=== PATIENT | female | born 1960 | race Caucasian/White ===

== ENCOUNTER 2018-12-14 10:00 | Emergency (ER) | payer OTHER ==
[~2018-12-14] VITALS: Ht 162.6 cm; Wt 65.8 kg
[2018-12-14] MEDS ORDERED: SODIUM CHLORIDE 0.9% 1000ML 1,000 ML IV STA (11:13)
[2018-12-14] MEDS ORDERED: PANTOPRAZOLE 40 MG 10ML VIAL IV STA (11:13)
[2018-12-14 12:19] LABS: BASOPHILS % 0.3 % (0.0-1.0); EOSINOPHILS # (AUTO) 0.1 (0.0-0.4); EOSINOPHILS % 0.7 % (0.0-6.0); HEMATOCRIT 32.2 % (34.2-44.1); HEMOGLOBIN 11.2 g/dL (12.0-16.0); LYMPHOCYTES # (AUTO) 1.4 (1.0-3.2); LYMPHOCYTES % 20.7 % (18.0-39.1); MEAN CORPUSCULAR HEMOGLOBIN 29.4 pg (28-32); MEAN CORPUSCULAR HGB CONC 34.8 g/dL (31-35); MEAN CORPUSCULAR VOLUME 84.5 fL (81-99); MONOCYTES # (AUTO) 0.7 (0.2-0.8); NEUTROPHILS # (AUTO) 4.7 (2.1-6.9); NEUTROPHILS % 68.2 % (38.7-80.0); PLATELET COUNT 212 x10e3/uL (140-360); RED BLOOD COUNT 3.81 x10e6/uL (3.6-5.1); RED CELL DISTRIBUTION WIDTH 13.2 % (11.7-14.4)
[2018-12-14 12:22] LABS: BILIRUBIN,URINE NEGATIVE (NEGATIVE); CLARITY,URINE SL CLOUDY (CLEAR); COLOR,URINE YELLOW (YELLOW); KETONES,URINE NEGATIVE (NEGATIVE); LEUKOCYTE ESTERASE ,URINE NEGATIVE (NEGATIVE); NITRITE,URINE NEGATIVE (NEGATIVE); PROTEIN,URINE DIPSTICK NEGATIVE (NEGATIVE); URINE UROBILINOGEN 0.2 mg/dL (0.2 - 1)
--- NOTE | 2018-12-14 12:26 | Diagnostic Imaging Report ---
Examination: Single AP view of the chest. COMPARISON: None. INDICATION: Nausea, vomiting, abdominal pain DISCUSSION: Lungs are well-inflated and without focal airspace consolidation, pleural effusion, or pneumothorax. Cardiomediastinal contour and pulmonary vasculature are within normal limits for portable, AP technique. No acute osseous abnormality. IMPRESSION: No acute cardiopulmonary abnormality. Signed by: Dr. Raul Galarza M.D. on 12/14/2018 12:23 PM
[2018-12-14 12:27] LABS: PHENCYCLIDINE SCREEN,URINE NEGATIVE (NEGATIVE)
[2018-12-14 12:28] LABS: AMPHETAMINES SCREEN,URINE NEGATIVE (NEGATIVE)
[2018-12-14 12:28] LABS: INR 0.93
[2018-12-14 12:29] LABS: BENZODIAZEPINES SCREEN,URINE POSITIVE (NEGATIVE)
[2018-12-14 12:29] LABS: PARTIAL THROMBOPLASTIN TIME 28.7 seconds (23.8-35.5)
[2018-12-14 12:33] LABS: WBC,URINE (MAN) 0-5 /HPF (0-5)
[2018-12-14 12:34] LABS: BACTERIA,URINE RARE /HPF; EPITHELIAL CELLS,URINE MODERATE /LPF
[2018-12-14 12:37] LABS: ALBUMIN 3.9 g/dL (3.5-5.0); ALBUMIN/GLOBULIN RATIO 1.3 (0.8-2.0); ANION GAP 11.1 mmol/L (8-16); CALCIUM 9.3 mg/dL (8.4-10.2); CHOL/HDL RATIO 3.7 (3.0-3.6); CREATININE, SERUM 1.16 mg/dL (0.57-1.11); POTASSIUM 4.1 mmol/L (3.5-5.1)
[2018-12-14 12:43] LABS: CREATINE KINASE MB 4.3 ng/mL (0-5.0)
--- NOTE | 2018-12-14 13:38 | Diagnostic Imaging Report ---
EXAMINATION: CT of the abdomen and pelvis without contrast. TECHNIQUE: Spiral CT images of the abdomen and pelvis were performed from the lung bases to the lesser trochanters. No intravenous contrast was given per renal stone protocol. Coronal and sagittal reformatted images were obtained. COMPARISON: Chest radiograph same day CLINICAL HISTORY:Bloating, abdominal pain DISCUSSION: ABSENCE OF INTRAVENOUS CONTRAST DECREASES SENSITIVITY FOR DETECTION OF FOCAL LESIONS AND VASCULAR PATHOLOGY. ABDOMEN/PELVIS: LOWER THORAX: Unremarkable. HEPATOBILIARY:No focal hepatic lesion or intrahepatic biliary ductal dilatation. The gallbladder is distended but without pericholecystic inflammation or radiopaque calculi. SPLEEN: No splenomegaly. PANCREAS: No focal masses or ductal dilatation. ADRENALS: No adrenal nodules. KIDNEYS/URETERS: No hydronephrosis, stones, or solid mass lesions. PELVIC ORGANS/BLADDER: Urinary bladder is incompletely distended but otherwise unremarkable. No adnexal mass. PERITONEUM/RETROPERITONEUM: No free air or fluid. LYMPH NODES: No pelvic sidewall, retroperitoneal, or mesenteric lymphadenopathy. VESSELS: Limited evaluation without intravenous contrast. Atherosclerotic calcification of the abdominal aorta without aneurysmal dilatation. GI TRACT: The large bowel shows no distention or wall thickening. Gas and fecal material is noted throughout. The appendix is normal. The stomach is collapsed with prominence of the rugal folds. No small bowel dilatation to suggest obstruction. BONES AND SOFT TISSUES: No osseous destructive lesions. Posttraumatic changes of the proximal left femur with secondary hip osteoarthrosis. Multilevel degenerative disc changes and facet arthropathy of the lumbar spine. No focal soft tissue abnormalities. IMPRESSION: No acute intra-abdominal or pelvic CT abnormalities. Nonspecific gallbladder distention without radiopaque calculus or pericholecystic inflammation. Signed by: Dr. Raul Galarza M.D. on 12/14/2018 1:35 PM
[2018-12-14 13:57] VITALS: BP 143/70
== END 2018-12-14 14:06 | disposition home or self-care (01) ==
LOC: ER 10:00
DX: R10.31 Right lower quadrant pain (principal); R10.84 Generalized abdominal pain; R11.2 Nausea with vomiting, unspecified; R19.7 Diarrhea, unspecified; F17.210 Nicotine dependence, cigarettes, uncomplicated
CPT/HCPCS: 36415; 71045; 74176; 80053; 80061; 80307; 81001; 82150; 82550; 82553; 83690; 84484; 85025; 85610; 85730; 99284

== ENCOUNTER → 2019-01-10 | Outpatient (CLI) | payer MEDICARE, OTHER ==
[~2019-01-10] MED LIST: ATIVAN; LEVOTHYROXINE50 MCG PO; METHADONE HCL10 MG PO; QUETIAPINE FUM100 MG PO; SYMBICORT 80-10.2 GM INH
[2019-01-10 14:58] LABS: BASOPHILS % 0.7 % (0.0-1.0); EOSINOPHILS # (AUTO) 0.1 (0.0-0.4); EOSINOPHILS % 2.1 % (0.0-6.0); HEMOGLOBIN 11.2 g/dL (12.0-16.0); LYMPHOCYTES # (AUTO) 1.6 (1.0-3.2); LYMPHOCYTES % 36.8 % (18.0-39.1); MEAN CORPUSCULAR HEMOGLOBIN 28.2 pg (28-32); MEAN CORPUSCULAR HGB CONC 32.9 g/dL (31-35); MEAN CORPUSCULAR VOLUME 85.6 fL (81-99); MONOCYTES # (AUTO) 0.5 (0.2-0.8); MONOCYTES % 11.6 % (4.4-11.3); NEUTROPHILS % 48.6 % (38.7-80.0); PLATELET COUNT 238 x10e3/uL (140-360); RED BLOOD COUNT 3.97 x10e6/uL (3.6-5.1); RED CELL DISTRIBUTION WIDTH 13.4 % (11.7-14.4)
--- OUTSIDE RECORDS SUMMARY | 2019-01-12 08:46 | XMS REPORT ---
Author Author [facility] Address Unknown Phone Unavailable Care Team Providers Care Client Services Coordinator Name Role Phone Dalton GUERRERO Unavailable Unavailable Problems This patient has no known problems. Allergies, Adverse Reactions, Alerts This patient has no known allergies or adverse reactions. Medications This patient has no known medications. Results Test Description Test Time Test Comments Text Results Atomic Results Result Comments CT ABDOMEN/PELVIS WO 2018-12-14 13:26:00 [place] [address] Patient Name: SANAM AIKEN MR #: [id number] : 1960 Age/Sex: 58/F Req #: [id number] Adm Physician: Ordered by: HELEN BURGOS NP Report #: [id number] Location: ER Room/Bed: Procedure: [id number] CT/CT ABDOMEN/PELVIS WO Exam Date: 12/14/18 Exam Time: 1250 REPORT STATUS: Signed EXAMINATION: CT of the abdomen and pelvis without contr ast. TECHNIQUE: Spiral CT images of the abdomen and pelvis were performed from the lung bases to the lesser trochanters. No intravenous contrast was given per renal stone protocol. Coronal and sagittal reformatted images were obtained. COMPARISON: Chest radiograph same day CLINICAL HISTORY:Bloating, abdominal pain DISCUSSION: ABSENCE OF INTRAVENOUS CONTRAST DECREASES SENSITIVITY FOR DETECTION OF FOCAL LESIONS AND VASCULAR PATHOLOGY. ABDOMEN/PELVIS: LOWER THORAX: Unremarkable. HEPATOBILIARY:No focal hepatic lesion or intrahepatic biliary ductal dilata tion. The gallbladder is distended but without pericholecystic inflammation or radiopaque calculi. SPLEEN: No splenomegaly. PANCREAS: No focal masses or ductal dilatation. ADRENALS: No adrenal nodules. KIDNEYS/URETERS: No hydronephrosis, stones, or solid mass lesions. PELVIC ORGANS/BLADDER: Urinary bladder is incompletely distended but otherwise unremarkable. No adnexal mass. PERITONEUM/RETROPERITONEUM: No free air or fluid. LYMPH NODES: No pelvic sidewall, retroperitoneal, or mesenteric lymphadenopathy. VESSELS: Limited evaluation without intravenous contrast. Atherosclerotic calcification of the abdominal aorta without aneurysmal dilatation. GI TRACT: The large bowel shows no distention or wall thickening. Gas and fecal material is noted throughout. The appendix is normal. The stomach is collapsed with prominence of the rugal folds. No small bowel dilatation to suggest obstruction. BONES AND SOFT TISSUES: No osseous destructive lesions. Posttraumatic changes of the proximal left femur with secondary hip osteoarthrosis. Multilevel degenerative disc changes and facet arthropathy of the lumbar spine. No focal soft tissue abnormalities. IMPRESSION: No acute intra-abdominal or pelvic CT abnormalities. Nonspecific gallbladder distention without radiopaque calculus or pericholecystic inflammation. Signed by: Dr. Rica Auguste M.D. on 12/14/2018 1:35 PM Dictated By: RICA AUGUSTE MD [id number] Transcribed By: KT on 12/14/18 1339 COPY TO: HELEN BURGOS NP CHEST SINGLE (PORTABLE) 2018-12-14 12:22:00 [place] [address] Patient Name: SANAM AIKEN MR #: [id number] : 1960 Age/Sex: 58/F Req #: [id number] Adm Physician: Ordered by: HELEN BURGOS NP Report #: [id number] Location: ER Room/Bed: Procedure: [id number] DX/CHEST SINGLE (PORTABLE) Exam Date: 12/14/18 Exam Time: 1200 REPORT STATUS: Signed Examination: Single AP view of the chest. COMPARI SON: None. INDICATION: Nausea, vomiting, abdominal pain DISCUSSION: Lungs are well-inflated and without focal airspace consolidation, pleural effusion, or pneumothorax. Cardiomediastinal contour and pulmonary vasculature are within normal limits for portable, AP technique. No acute osseous abnormality. IMPRESSION: No acute cardiopulmonary abnormality. Signed by: Dr. Rica Auguste M.D. on 12/14/2018 12:23 PM Dictated By: RICA AUGUSTE MD 1223 Transcribed By: KT on 12/14/18 1223 COPY TO: HELEN BURGOS NP
== END ==
LOC: RAD 05:00 → OR 01-12 08:43 → EDSTATUS 01-12 11:00
PROVIDERS: ATTEND Internal Medicine Gastroenterology
DX: G43.A0 Cyclical vomiting, in migraine, not intractable (principal); K92.1 Melena; K21.9 Gastro-esophageal reflux disease without esophagitis; K59.00 Constipation, unspecified; Z01.810 Encounter for preprocedural cardiovascular examination; Z01.812 Encounter for preprocedural laboratory examination; Z53.8 Procedure and treatment not carried out for other reasons
CPT/HCPCS: 36415; 85025; 93005

== ENCOUNTER → 2019-02-23 | Day surgery (SDC) | payer MEDICARE, OTHER ==
[2019-02-20 12:35] LABS: BASOPHILS % 0.8 % (0.0-1.0); EOSINOPHILS # (AUTO) 0.1 (0.0-0.4); EOSINOPHILS % 2.3 % (0.0-6.0); HEMATOCRIT 40.4 % (34.2-44.1); HEMOGLOBIN 13.3 g/dL (12.0-16.0); LYMPHOCYTES # (AUTO) 1.5 (1.0-3.2); LYMPHOCYTES % 38.3 % (18.0-39.1); MEAN CORPUSCULAR HEMOGLOBIN 28.4 pg (28-32); MEAN CORPUSCULAR HGB CONC 32.9 g/dL (31-35); MEAN CORPUSCULAR VOLUME 86.1 fL (81-99); MONOCYTES # (AUTO) 0.4 (0.2-0.8); MONOCYTES % 10.3 % (4.4-11.3); NEUTROPHILS # (AUTO) 1.9 (2.1-6.9); PLATELET COUNT 213 x10e3/uL (140-360); RED BLOOD COUNT 4.69 x10e6/uL (3.6-5.1); RED CELL DISTRIBUTION WIDTH 13.3 % (11.7-14.4)
[~2019-02-23] MED LIST changes: +FENTANYL CITRATE/PF 100MCG/2 ML INJ ONE; +HYOSCYAMINE 0.125 MG TAB ONE; +KETAMINE HCL INJ 50 MG/ML 10 ML VIAL ONE; +LIDOCAINE HCL 2% LOCAL INJ 5 ML SDV VIAL INJ ONE; +MIDAZOLAM HCL 2 MG/2 ML VIAL ONE; +PROPOFOL IV EMULSION 10 MG/ML 50 ML VIAL ONE
[2019-02-23 14:00] VITALS: BP 136/81
--- NOTE | 2019-02-23 14:02 | Operative Report ---
DATE OF PROCEDURE: 02/23/2019 SURGEON: Abilio Garibay MD PROCEDURES: EGD with biopsies and a flexible sigmoidoscopy. INDICATIONS FOR EGD: Acid reflux, nausea, and vomiting. INDICATIONS FOR FLEXIBLE SIGMOIDOSCOPY: Colorectal cancer screening, constipation, and history of bright red blood per rectum. MEDICATIONS: The patient was done under MAC, please see anesthesiologist's note. PROCEDURE IN DETAIL: With the patient in left lateral decubitus position, a flexible fiberoptic Olympus gastroscope was introduced into the esophagus under direct visualization without any difficulty. There was some patchy intense erythema noted in distal esophagus. The scope was then advanced with ease into the stomach and mucosa overlying the antrum and the body revealed some patchy erythema, low-grade edema and biopsies were obtained and sent to stain for H. pylori. The pylorus was intubated with ease and the scope was advanced all the way to the second portion of the duodenum. The scope was then withdrawn slowly, mucosa overlying the second portion and duodenal bulb grossly appeared to be within normal limits. Biopsies were obtained to rule out sprue. The scope was then withdrawn back into the stomach and retroflexed and mucosa overlying the fundus and the cardia appeared to be within normal limits. The scope was then straightened out, it was subsequently withdrawn, and the patient tolerated the procedure well. IMPRESSION: 1. Distal esophagitis. 2. Gastritis, biopsied, biopsies sent to stain for Helicobacter pylori. 3. Rule out sprue. PLAN: Follow up histology. Initiate Protonix 40 mg one p.o. q.a.m. before meals. The patient was then turned and around after adequate lubrication of the anal canal, a flexible fiberoptic Olympus colonoscope was introduced into the rectum and could be advanced only to 30 cm from the anal verge. The prep was very poor and the scope could not be advanced any further secondary to the large amount of retained fecal material. The scope was subsequently withdrawn and the patient tolerated the procedure well. IMPRESSION: Flexible sigmoidoscopy to 30 cm. The scope did not advance any further secondary to presence of large amount of retained fecal material. PLAN: The patient will need to be re-prepped for a repeat colonoscopy. Abilio Garibay MD [facility]/MODL /[id number] cc: Emily Adames MD
== END | disposition home or self-care (01) ==
LOC: OR 08:55
PROVIDERS: ATTEND Internal Medicine Gastroenterology
DX: K29.80 Duodenitis without bleeding (principal); K29.60 Other gastritis without bleeding; G43.A0 Cyclical vomiting, in migraine, not intractable; K92.1 Melena; K59.00 Constipation, unspecified; K21.9 Gastro-esophageal reflux disease without esophagitis; Z01.810 Encounter for preprocedural cardiovascular examination; Z01.812 Encounter for preprocedural laboratory examination; E03.8 Other specified hypothyroidism; E03.9 Hypothyroidism, unspecified; F17.210 Nicotine dependence, cigarettes, uncomplicated; N18.9 Chronic kidney disease, unspecified; M06.9 Rheumatoid arthritis, unspecified; Z86.19 Personal history of other infectious and parasitic diseases; J45.909 Unspecified asthma, uncomplicated
CPT/HCPCS: 36415; 43239; 45330; 85025; 88305; 88312; 93005; J2001; J2250; J2704; J3010

== ENCOUNTER 2019-09-30 06:53 | Observation (INO) | payer OTHER ==
[2019-09-26 10:24] LABS: BASOPHILS % 0.8 % (0.0-1.0); EOSINOPHILS # (AUTO) 0.1 (0.0-0.4); EOSINOPHILS % 2.5 % (0.0-6.0); HEMATOCRIT 33.3 % (34.2-44.1); HEMOGLOBIN 10.9 g/dL (12.0-16.0); LYMPHOCYTES % 41.5 % (18.0-39.1); MEAN CORPUSCULAR HEMOGLOBIN 28.6 pg (28-32); MEAN CORPUSCULAR HGB CONC 32.7 g/dL (31-35); MEAN CORPUSCULAR VOLUME 87.4 fL (81-99); MONOCYTES # (AUTO) 0.6 (0.2-0.8); MONOCYTES % 13.5 % (4.4-11.3); NEUTROPHILS % 41.5 % (38.7-80.0); PLATELET COUNT 215 x10e3/uL (140-360); RED BLOOD COUNT 3.81 x10e6/uL (3.6-5.1); RED CELL DISTRIBUTION WIDTH 14.6 % (11.7-14.4)
[2019-09-30] VITALS (9 sets, daily range): BP systolic 101–141; BP diastolic 58–86
[~2019-09-30 06:53] MED LIST changes: -FENTANYL CITRATE/PF 100MCG/2 ML INJ ONE; -HYOSCYAMINE 0.125 MG TAB ONE; -KETAMINE HCL INJ 50 MG/ML 10 ML VIAL ONE; -LIDOCAINE HCL 2% LOCAL INJ 5 ML SDV VIAL INJ ONE; -MIDAZOLAM HCL 2 MG/2 ML VIAL ONE; +OMEPRAZOLE40 MG PO; +PANTOPRAZOLE SO40 MG PO; -PROPOFOL IV EMULSION 10 MG/ML 50 ML VIAL ONE; +ROPIVACAINE 246.25 MG, EPINEPHRINE HCL 1:1000 1ML 0.5 MG, CLONIDINE HCL 0.08 MG, KETORO... INJ ONE
[2019-09-30] MEDS ORDERED: DEXAMETHASONE SOD PHOS 10 MG/1 ML VIAL ONE (07:27)
[2019-09-30] MEDS ORDERED: CELECOXIB 200 MG CAP ONE (07:27)
[2019-09-30] MEDS ORDERED: GABAPENTIN 300 MG CAP ONE (07:28)
[2019-09-30] MEDS ORDERED: BUPIVACAINE 7.5MG/ML /DEXTROSE 82.5MG/ML 2 ML AMP INJ ONE (07:57)
[2019-09-30] MEDS ORDERED: ROPIVACAINE 246.25 MG, EPINEPHRINE HCL 1:1000 1ML 0.5 MG, CLONIDINE HCL 0.08 MG, KETORO... INJ ONE ×5 (08:00)
[2019-09-30] MEDS ORDERED: CEFAZOLIN SOD 1 GM/NS 50ML 100 ML IV ONE (08:05)
[2019-09-30] MEDS ORDERED: SODIUM CHLORIDE 0.9% 500ML 500 ML ONE (09:02)
[2019-09-30] MEDS ORDERED: VANCOMYCIN HCL 1,000 MG ONE (09:02)
[2019-09-30] MEDS ORDERED: TRANEXAMIC ACID 1,000 MG/10 ML ML ONE (09:03)
[2019-09-30] MEDS ORDERED: BACITRACIN 50,000 UNIT VIAL ONE (09:03)
[2019-09-30] MEDS: SODIUM CHLORIDE 0.9% 1000ML 1,000 ML IV SCH ×2 (11:01→21:01)
[2019-09-30] MEDS ORDERED: PROMETHAZINE HCL (IM) 25 MG/ML VIAL IM PRN (11:15)
[2019-09-30] MEDS ORDERED: ACETAMINOPHEN 650 MG SUPP PR PRN (11:15)
[2019-09-30] MEDS ORDERED: HYDROCODONE/APAP 5MG-325MG TAB PO PRN (11:15)
[2019-09-30] MEDS ORDERED: ONDANSETRON HCL INJ 2MG/ML 2ML 2 MG/ML VIAL IV PRN (11:15)
[2019-09-30] MEDS ORDERED: DOCUSATE SODIUM 100 MG CAP PO PRN (11:15)
[2019-09-30] MEDS ORDERED: DIPHENHYDRAMINE HCL INJ 50 MG/ML VIAL IM/IV PRN (11:15)
--- NOTE | 2019-09-30 11:49 | Diagnostic Imaging Report ---
EXAMINATION: PELVIS AP 1-2 VIEWS INDICATION: Postoperative COMPARISON: CT abdomen and pelvis of 12/14/2014 FINDINGS: Portable AP view of the pelvis demonstrates immediate postoperative findings of left total hip replacement. Alignment appears anatomic. No unexpected fracture. Postoperative soft tissue emphysema. Surgical skin patience in place. Mild degenerative changes of the [place] right hip joint. IMPRESSION: Anatomic alignment status post left total hip replacement. Signed by: Liam Medina MD on 09/30/2019 11:46 AM
[2019-09-30] MEDS ORDERED: MEPERIDINE HCL INJ 25 MG/ML VIAL ONE (12:02)
--- NOTE | 2019-09-30 12:30 | NUR ---
RECD FROM PACU VIA STRETCHER. A&OX4. FOLLOWS DIRECTIONS. LEFT HIP DRESSING CDI. C/O PAIN WITH MOVEMENT. ABDUCTOR PILLOW IN PLACE. GIVEN WARM BLANKETS AND IS SLEEPING UNLESS AROUSED
[2019-09-30] MEDS ORDERED: CEFAZOLIN SOD 1 GM/NS 50ML 50 ML IV SCH (14:00)
--- NOTE | 2019-09-30 14:06 | NUR ---
REMAINS STABLE WITH NO COMPLAINTS. LEFT HIP REMAINS STABLE, DRESSING CDI.
[2019-09-30] MEDS: KETOROLAC TROMETHAMINE 30 MG/ML VIAL IV PRN (16:19)
[2019-09-30] MEDS: CEFAZOLIN SOD 1 GM/NS 50ML 50 ML IV SCH ×2 (16:51→23:57)
--- NOTE | 2019-09-30 16:56 | Operative Report ---
DATE OF PROCEDURE: 09/30/2019 SURGEON: Raul Alcaraz MD STOREROOM CLERK: Toney Nash, certified PA. PREOPERATIVE DIAGNOSIS: Osteoarthritis, left hip with acquired dysplasia. POSTOPERATIVE DIAGNOSIS: Osteoarthritis, left hip with acquired dysplasia. PROCEDURE: Left total hip arthroplasty with complex acetabular reconstruction. INDICATIONS: The patient is a 59-year-old lady with severe neglected arthritis of her left hip. She presented to me to obtain a left total hip replacement. The risks and benefits of the procedure were discussed. The challenges due to the acetabular wear were explained. The risks and benefits of the procedure were discussed. All of her questions were answered. She states she understands and wishes to proceed. PROCEDURE IN DETAIL: The patient was brought to the operating room and placed under general anesthetic. She received prophylactic antibiotics and tranexamic acid in the holding area. She was positioned in the right lateral decubitus position. Her left hip was prepped and draped in a sterile manner. She was noted to have a severe flexion contracture of her left hip. A preoperative time-out was performed. A posterior approach with a slightly more extensile exposure was made. Hemostasis was obtained with electrocautery. A Charnley self-retaining retractor was placed. The posterior capsule was exposed and further hemostasis was obtained with electrocautery. The capsule and a portion of the short external rotators were released. The piriformis was preserved. The hip was dislocated and an oscillating saw was used to resect the femoral head. The head was passed to the back table for use for bone graft later in the case. Acetabular retractors were carefully placed. Severe wear of the socket was noted. Pronounced marginal osteophytes were encountered. The true floor of the acetabulum was established with a 46 mm reamer. The socket was then sequentially reamed up to about 54 mm. This accomplished anterior to posterior bleeding cancellous bone. There was a large superior defect. I went back to a 46 mm reamer and decorticated the superior portion of the socket. A large structural portion of the femoral head was contoured using an oscillating saw. This was decorticated as well. This was pinned into place in the superior defect of the socket. We returned to acetabular reamers and sequentially reamed up again to 56 mm. The wound had been irrigated several times throughout this portion of the case using a shower tip pulsatile lavage. A Marion [employer] 58 mm outer diameter OsseoTi socket was impacted into place. Excellent stability of the structural graft and the socket was accomplished. Fixation was augmented using a single 25 mm cancellous screw placed into the ilium. Sizable marginal osteophytes were carefully removed with a curved osteotome. A highly cross-linked polyethylene liner with no posterior elevation was then seated into place. Care was taken to make sure that there was no soft tissue interposition. The socket was packed with a moistly soaked lap sponge and attention was directed towards the proximal femur. A large anterior osteophyte of the femoral neck was removed with a curved osteotome. The Marion [employer] Taperloc broaches were impacted. A size 9 stem had good canal fill and stability. Trial reductions were performed. I ultimately decided on a standard neck and 36 mm head. This provided good range of motion and stability. A portion of the anterior capsule was released due to the flexion contracture. The trial femoral stem was then removed. The hip was further irrigated. The implant was seated and again a trial reduction was performed. I confirmed a standard 36 mm head. The ceramic head with a standard neck was seated onto a clean and dry stem. A final reduction was performed. A large thickened capsular component was repaired using interrupted #2 Ethibond in a [id number] fashion. A 500 mg of vancomycin powder was sprinkled into the deep wound. The fascia was then closed with interrupted #2 Ethibond. The skin was closed with subcuticular Vicryl and patience. A sterile Aquacel bandage was applied. The patient was returned to the supine position, extubated and transported to the recovery room in stable condition. Estimated blood loss was 100 mL. At the end of the procedure, all needle and sponge counts were correct. Raul Alcaraz MD DR/MAURICIO /[id number]
[2019-09-30] MEDS ORDERED: SEVOFLURANE INHAL SOLN 250 ML PEN BTL ONE (17:28)
[2019-09-30] MEDS ORDERED: PROPOFOL IV EMULSION 10 MG/ML 20 ML VIAL ONE (17:28)
[2019-09-30] MEDS ORDERED: NEOSTIGMINE 1 MG/ML 10ML VIAL ONE (17:28)
[2019-09-30] MEDS ORDERED: ONDANSETRON HCL INJ 2MG/ML 2ML 2 MG/ML VIAL ONE (17:28)
[2019-09-30] MEDS ORDERED: LIDOCAINE HCL 2% LOCAL INJ 5 ML SDV VIAL INJ ONE (17:28)
[2019-09-30] MEDS ORDERED: EPHEDRINE SULFATE INJ 50 MG/ML VIAL ONE (17:28)
[2019-09-30] MEDS ORDERED: GLYCOPYRROLATE INJ 0.2 MG/ML VIAL ONE (17:28)
[2019-09-30] MEDS ORDERED: FENTANYL CITRATE/PF 100MCG/2 ML INJ ONE (17:34)
[2019-09-30] MEDS ORDERED: MIDAZOLAM HCL 2 MG/2 ML VIAL ONE (17:34)
[2019-09-30] MEDS: CELECOXIB 200 MG CAP PO SCH (17:45)
[2019-09-30] MEDS: ASPIRIN 325 MG TAB PO SCH (17:49)
[2019-09-30] MEDS: HYDROCODONE/APAP 7.5MG-325MG 1 EA TAB PO PRN (18:40)
--- NOTE | 2019-09-30 18:47 | NUR ---
REQUESTED NORCO, SAME GIVEN, EVEN THOUGH SHE STATES HER HI IS NUMB. SHE STARTS A DISCUSSION ABOUT HER PAIN MEDS AND HER POST ADDICTION AND METHADONE EVERY TIME I GO TO THE ROOM TO SEE HER AND ASSESS HER. SHE IS REQUESTING STONGER PAIN MEDICATIONS AND REQUESTS THE STRONGEST NORCO THERE IS TO HELP HER BECAUSE SHE ALSO TAKE METHADONE, PER PATIENT
--- NOTE | 2019-09-30 19:00 | NUR ---
REPORT RECEIVED FROM DAY RN. PT IS ALERT AND ORIENTED X3. RESPIRATIONS EVEN AND UNLABORED. NS INFUSING AT 100ML/HR VIA RT FOREARM 20G. LT HIP DRESSING DRY AND INTACT. ABDUCTOR PILLOW IN PLACE. PT DENIES PAIN. PICWIC STARTED FOR THIS SHIFT- PT INSTRUCTED. PT TOLERATING PO WELL BUT ATE POOR FOR DINNER. CALL LIGHT WITHIN REACH. BED LOCKED AND IN LOW POSITION. Addendum: 10/01/19 at 0342 by EMILE ACEVEDO RN TARYN CASTRO.
[2019-09-30] MEDS ORDERED: ZOLPIDEM TARTRATE 5 MG TAB PO PRN (21:00)
[2019-10-01] VITALS: BP 97/58
[2019-10-01] MEDS: HYDROCODONE/APAP 7.5MG-325MG 1 EA TAB PO PRN (01:23)
[2019-10-01 04:00] VITALS: BP 113/60
[2019-10-01] MEDS: SODIUM CHLORIDE 0.9% 1000ML 1,000 ML IV SCH ×2 (04:00→07:01)
[2019-10-01] MEDS: KETOROLAC TROMETHAMINE 30 MG/ML VIAL IV PRN (04:15)
--- NOTE | 2019-10-01 05:24 | Consultation ---
DATE OF CONSULTATION: REASON FOR CONSULTATION: Left hip pain. HISTORY OF PRESENT ILLNESS: The patient is a 59-year-old lady, status post left hip arthroplasty, who is doing well postoperatively with some complaints of pain in the area, but denies any fever, chills, nausea, vomiting, headache, shortness of breath, or dizziness. PAST MEDICAL HISTORY: Significant for chronic arthritis, hypothyroidism, reflux disease, anxiety disorder, COPD. MEDICATIONS: See MAR. ALLERGIES: NONE. SOCIAL HISTORY: She is positive smoker less than a pack per day. Denies alcohol abuse. FAMILY HISTORY: Noncontributory. PHYSICAL EXAMINATION: VITAL SIGNS: Temperature 97.7, pulse 87, blood pressure 197/58, and sats 96% on room air. GENERAL: She is in no apparent distress, lying in the bed. NECK: Supple. CARDIOVASCULAR: Regular rate and rhythm. LUNGS: Clear to auscultation bilaterally. ABDOMEN: Good bowel sounds. Soft and nontender. EXTREMITIES: No clubbing or cyanosis. NEUROLOGIC: Nonfocal. Moves all extremities x4. ASSESSMENT AND PLAN: 1. Left hip pain. We will continue with pain control and start with physical therapy. The patient states she feels like she needs a correction facility due to living upstairs. 2. Anxiety. We will continue with her home medicine. 3. Hypothyroidism. We will continue with her home medicine. 4. Chronic obstructive pulmonary disease. We will continue with her inhaler. 5. Reflux disease. We will continue with her proton pump inhibitor. 6. Anemia. We will check a CBC. Please see hospital chart for full details. MD MARIA ISABEL Ospina/MAURICIO /[id number]
[2019-10-01] MEDS ORDERED: BUDESONIDE/FORMOTEROL FUMARATE 80/4.5MCG 6.9 GM INH AEROSOL IH SCH (05:45)
[2019-10-01 07:48] LABS: HEMOGLOBIN 9.2 g/dL (12.0-16.0)
[2019-10-01] MEDS: CELECOXIB 200 MG CAP PO SCH (08:00)
--- NOTE | 2019-10-01 08:11 | NUR ---
DR CHENEY OFFICE PREARRANGED FOLLOWING DISCHARGE PLAN OF: RETURNING HOME HOME HEALTH WITH [facility] CONFIRMED WITH [phone] DME 3 IN ONE COMMODE. AND ROLLING WALKER WITH WHEELS. PROVIDED BY [employer] KIRAN [phone] KATHY SIGNED AND ON CHART COPY LEFT WITH PATIENT GAVE CARD FOR QUESTIONS AND OR CONCERNS.
[2019-10-01 08:17] VITALS: BP 132/66
[2019-10-01 08:37] VITALS: BP 132/66
[2019-10-01] MEDS: CEFAZOLIN SOD 1 GM/NS 50ML 50 ML IV SCH (08:51)
[2019-10-01] MEDS: ASPIRIN 325 MG TAB PO SCH (08:52)
[2019-10-01] MEDS ORDERED: PANTOPRAZOLE SOD 40 MG TABEC PO SCH (09:00)
[2019-10-01] MEDS ORDERED: METHADONE HCL 10 MG TAB PO SCH (09:00)
[2019-10-01] MEDS ORDERED: ACETAMINOPHEN 1000 MG/100 ML IV PRN (11:15)
[2019-10-01 11:54] VITALS: BP 106/52
--- NOTE | 2019-10-01 12:23 | NUR ---
PT WORKED WITH FRANKLIN. MD CALLED IN PRESCRIPTIONS. IV REMOVED, PATIENT DRESSED AND DC INSTRUCTIONS GIVEN TO PATIENT. KNEE BRACED DELIVERED TO ROOM. HH SET UP FOR POST HOSPITAL CARE. WRITTEN AND VERBAL INSTRUCTIONS GIVEN TO PATIENT BUT PATIENT WILL NEED REINFORCEMENT WHEN SHE GETS HOME. EXPLAINED TO PATIENT TO REREAD ALL INSTRUCTIONS AND FOR ANY OTHER QUESTIONS ABOUT HER SURGERY OR NEXT LEVEL OF CARE FOR HER TO CONTACT HER DOCTORS.
[2019-10-01] MEDS ORDERED: LEVOTHYROXINE SODIUM 50 MCG TAB PO SCH (21:00)
[2019-10-01] MEDS ORDERED: QUETIAPINE FUMARATE 100 MG TAB PO SCH (21:00)
== END 2019-10-01 12:35 | disposition home health service (06) ==
LOC: OR 06:53 → PACU V 11:04 → MED/SURG 12:25
PROVIDERS: ADMIT Specialist; ATTEND Specialist
DX: M16.12 Unilateral primary osteoarthritis, left hip (principal); F41.9 Anxiety disorder, unspecified; E03.9 Hypothyroidism, unspecified; J44.9 Chronic obstructive pulmonary disease, unspecified; K21.9 Gastro-esophageal reflux disease without esophagitis; D64.9 Anemia, unspecified
CPT/HCPCS: 27130; 36415 ×2; 72170; 85014; 85018; 85025; 86850; 86900; 86920; 93005; 97110 ×2; 97116 ×2; 97139; 97161; 97530; C1713 ×3; C1734; G0378 ×2; J0171 ×2; J0690 ×2; J1100; J1885 ×3; J2001; J2175; J2250; J2405; J2704; J2710; J2795 ×2; J3010; J3370; J7030 ×2; J7040; S0164

== ENCOUNTER 2020-01-07 14:29 | Inpatient (IN) | payer OTHER ==
[~2020-01-07] VITALS: Ht 162.6 cm; Wt 59.1 kg
[~2020-01-07 14:29] MED LIST changes: -ROPIVACAINE 246.25 MG, EPINEPHRINE HCL 1:1000 1ML 0.5 MG, CLONIDINE HCL 0.08 MG, KETORO... INJ ONE
--- NOTE | 2020-01-07 15:11 | NUR ---
DR. SEN EVALUATING PATIENT IN TRIAGE
[2020-01-07] MEDS ORDERED: SODIUM CHLORIDE 0.9% 1000ML 1,000 ML IV STA (15:13)
--- NOTE | 2020-01-07 16:23 | Diagnostic Imaging Report ---
EXAMINATION: CHEST SINGLE (PORTABLE) INDICATION: Cellulitis COMPARISON: Chest radiograph 12/14/2018 FINDINGS: LINES/TUBES:None LUNGS:The lungs are well-inflated. No focal consolidation or pulmonary edema. PLEURA:No pleural effusion or pneumothorax. MEDIASTINUM:The cardiomediastinal silhouette appears normal in size and shape. BONES/SOFT TISSUES:No acute osseous injury. ABDOMEN:No free air under the diaphragm. IMPRESSION: No focal pneumonia or pulmonary edema. Signed by: Liam Medina MD on 01/07/2020 4:20 PM
--- NOTE | 2020-01-07 16:26 | Diagnostic Imaging Report ---
EXAMINATION: FOREARM RIGHT 2 VIEW INDICATION: Cellulitis COMPARISON: None FINDINGS: No acute fracture or dislocation. Alignment is anatomic. 1 cm linear metallic opacity in the soft tissues of the lateral hand projecting between the first and second metacarpals. IMPRESSION: 1 cm linear metallic opacity in the soft tissues of the lateral hand consistent with a retained needle fragment. No acute osseous injury Signed by: Liam Medina MD on 01/07/2020 4:23 PM
--- NOTE | 2020-01-07 16:39 | NUR ---
MULTIPLE NURSES ATTEMPTED IV ACCESS. MD NOTIFIED AND REQUESTED IR CENTRAL LINE PLACEMENT. DR CHRISTIAN DECLINED PLACEMENT FOR ER. MD TO MD SPOKE. LABS OBTAINED AND IR FOR PICC LINE TO BE DONE.
[2020-01-07 16:42] LABS: CLARITY,URINE SL CLOUDY (CLEAR); COLOR,URINE YELLOW (YELLOW)
[2020-01-07 16:43] LABS: BILIRUBIN,URINE SMALL (NEGATIVE); KETONES,URINE NEGATIVE (NEGATIVE); LEUKOCYTE ESTERASE ,URINE SMALL (NEGATIVE); NITRITE,URINE NEGATIVE (NEGATIVE); PROTEIN,URINE DIPSTICK TRACE (NEGATIVE); URINE UROBILINOGEN 1 mg/dL (0.2 - 1)
[2020-01-07] MEDS: PIPER-TAZ 3.375 GM 50 ML IV SCH ×2 (16:51→22:00)
[2020-01-07] MEDS: VANCOMYCIN 1GM/NS 250 ML 250 ML IV SCH (16:52)
[2020-01-07 16:55] LABS: WBC,URINE (MAN) >50 /HPF (0-5)
[2020-01-07 16:56] LABS: BACTERIA,URINE MANY /HPF; EPITHELIAL CELLS,URINE MANY /LPF
[2020-01-07 16:58] LABS: BASOPHILS # (AUTO) 0.1 (0.0-0.1); BASOPHILS % 0.7 % (0.0-1.0); EOSINOPHILS # (AUTO) 0.1 (0.0-0.4); EOSINOPHILS % 1.6 % (0.0-6.0); HEMOGLOBIN 12.2 g/dL (12.0-16.0); LYMPHOCYTES # (AUTO) 1.3 (1.0-3.2); LYMPHOCYTES % 14.5 % (18.0-39.1); MEAN CORPUSCULAR HEMOGLOBIN 26.2 pg (28-32); MEAN CORPUSCULAR HGB CONC 32.1 g/dL (31-35); MEAN CORPUSCULAR VOLUME 81.7 fL (81-99); MONOCYTES # (AUTO) 0.9 (0.2-0.8); MONOCYTES % 9.7 % (4.4-11.3); NEUTROPHILS # (AUTO) 6.5 (2.1-6.9); NEUTROPHILS % 72.9 % (38.7-80.0); PLATELET COUNT 269 x10e3/uL (140-360); RED BLOOD COUNT 4.65 x10e6/uL (3.6-5.1); RED CELL DISTRIBUTION WIDTH 14.3 % (11.7-14.4)
[2020-01-07 17:01] LABS: PROTHROMBIN TIME 13.8 seconds (11.9-14.5)
[2020-01-07 17:02] LABS: PARTIAL THROMBOPLASTIN TIME 29.6 seconds (23.8-35.5)
[2020-01-07 17:11] LABS: ALBUMIN 2.9 g/dL (3.5-5.0); ALBUMIN/GLOBULIN RATIO 0.7 (0.8-2.0); ANION GAP 15.7 mmol/L (8-16); CALCIUM 8.9 mg/dL (8.4-10.2); CREATININE, SERUM 1.27 mg/dL (0.57-1.11); POTASSIUM 3.7 mmol/L (3.5-5.1)
[2020-01-07] MEDS ORDERED: ONDANSETRON HCL INJ 2MG/ML 2ML 2 MG/ML VIAL IV PRN (18:30)
[2020-01-07] MEDS ORDERED: MORPHINE SULFATE 2 MG/ML SYR 1ML IV PRN (18:30)
--- NOTE | 2020-01-07 18:30 | Emergency Department Note ---
History of Present Illnes History of Present Illness Chief Complaint: General Medicine Complaints History of Present Illness This is a 59 year old female STATES SHE WANTS PAIN MEDICATION AND ANTIBIOTICS FOR HER RIGHT ARM. 4 DAYS AGO "SHOT UP HEROIN". PATIENT HAS SWELLING AND TENDERNESS FROM ELBOW DOWN TO FINGER AND REDNESS TO INJECTION SITE STARTED 3 DAYS AGO AT RIGHT HAND AND NOW PROGRESSED UP TO ELBOW/ENTIRE FOREARM. Historian: Patient Arrival Mode: Car Additional Treatment MEDICAL DIRECTOR/HEAD TEAM PHYSICIAN: NONE Master Glazier Required: No Onset (how long ago): day(s) (3) Location: RIGHT FOREARM/HAND Quality: PAIN/SWELLING Radiation: Reports non-radiation Severity: severe Onset quality: gradual Timing of current episode: constant Progression: worsening Chronicity: new Context: Denies recent illness Relieving factors: none Exacerbating factors: none Associated symptoms: Reports denies other symptoms Past Medical/Family History Physician Review I have reviewed the patient's past medical and family history. Any updates have been documented here. Past Medical History Recent Fever: No Clinical Suspicion of Infectio: No New/Unexplained Change in Ment: No Past Medical History: COPD, CHF, Hepatitis C, Anxiety, Depression, Other Mental Illness, Osteoarthritis Other Medical History: USES METHADONE EVERYDAY X 7 YEARS SMOKES MAIJUANNA X 2 JOINTS EVERY DAY FOR 1 YEAR RA FIBROMYALGIA DEGENERATIVE BONE DISEASE NEUROPATHY CHRONIC LEFT HIP PAIN SCHIZO AFFECTIVE DISORDER Past Surgical History: T&A Other Surgery: ABCESS I&D PUT UNDER FOR ADDICTION Social History Smoking Cessation: Current every day smoker Counseling Performed: Yes Alcohol Use: Occasional Any Illegal Drug Use: Yes (HEROIN) TB Exposure/Symptoms: No Physically hurt or threatened: No Other Last Tetanus: UTD Any Pre-Existing Lines (PICC,: No Is patient up to date on immun: Yes Last Flu: UTD Last Pneumovax: UTD Review of Systems Review of Systems Constitutional: Reports no symptoms EENTM: Reports no symptoms Cardiovascular: Reports no symptoms Respiratory: Reports no symptoms Gastrointestinal: Reports no symptoms Genitourinary: Reports no symptoms Musculoskeletal: Reports as per HPI Integumentary: Reports as per HPI Neurological: Reports no symptoms Psychological: Reports no symptoms Endocrine: Reports no symptoms Hematological/Lymphatic: Reports no symptoms Physical Exam Related Data Allergies: Coded Allergies: No Known Allergies (Unverified , 01/07/20) Triage Vital Signs Vital Signs Date Time Temp Pulse Resp B/P (MAP) Pulse Ox O2 Delivery O2 Flow Rate FiO2 01/07/20 14:51 98.4 108 15 98/76 99 Vital signs reviewed: Yes Physical Exam CONSTITUTIONAL Constitutional: Present well-developed, Present well-nourished HENT HENT: Present normocephalic, Present atraumatic, Present oropharynx clear/moist, Present nose normal HENT L/R: Present left ext ear normal, Present right ext ear normal EYES Eyes: Reports PERRL, Reports conjunctivae normal NECK Neck: Present ROM normal PULMONARY Pulmonary: Present effort normal, Present breath sounds normal CARDIOVASCULAR Cardiovascular: Present regular rhythm, Present heart sounds normal, Present capillary refill normal, Present normal rate GASTROINTESTINAL Abdominal: Present soft, Present nontender, Present bowel sounds normal GENITOURINARY Genitourinary: Present exam deferred SKIN Skin: Present warm, Present dry MUSCULOSKELETAL Musculoskeletal: Present other (RIGHT ARM SWOLLEN, ERYTHEMATOUS, WARM, TENDER FROM ELBOW TO FINGERS CIRCUMFERENTIAL SWELLING, GOOD DISTAL CAP REFILL/SENS/ROM, N/V INTACT) NEUROLOGICAL Neurological: Present alert, Present oriented x 3, Present no gross motor or sensory deficits PSYCHOLOGICAL Psychological: Present mood/affect normal, Present judgement normal Results Laboratory Result Diagram: 01/07/20 1600 01/07/20 1600 Laboratory Laboratory Tests Test 01/07/20 16:00 01/07/20 15:29 White Blood Count 8.90 x10e3/uL (4.8-10.8) Red Blood Count 4.65 x10e6/uL (3.6-5.1) Hemoglobin 12.2 g/dL (12.0-16.0) Hematocrit 38.0 % (34.2-44.1) Mean Corpuscular Volume 81.7 fL (81-99) Mean Corpuscular Hemoglobin 26.2 pg (28-32) Mean Corpuscular Hemoglobin Concent 32.1 g/dL (31-35) Red Cell Distribution Width 14.3 % (11.7-14.4) Platelet Count 269 x10e3/uL (140-360) Neutrophils (%) (Auto) 72.9 % (38.7-80.0) Lymphocytes (%) (Auto) 14.5 % (18.0-39.1) Monocytes (%) (Auto) 9.7 % (4.4-11.3) Eosinophils (%) (Auto) 1.6 % (0.0-6.0) Basophils (%) (Auto) 0.7 % (0.0-1.0) Neutrophils # (Auto) 6.5 (2.1-6.9) Lymphocytes # (Auto) 1.3 (1.0-3.2) Monocytes # (Auto) 0.9 (0.2-0.8) Eosinophils # (Auto) 0.1 (0.0-0.4) Basophils # (Auto) 0.1 (0.0-0.1) Absolute Immature Granulocyte (auto 0.05 x10e3/uL (0-0.1) Prothrombin Time 13.8 seconds (11.9-14.5) Prothromb Time International Ratio 1.00 Activated Partial Thromboplast Time 29.6 seconds (23.8-35.5) Sodium Level 136 mmol/L (136-145) Potassium Level 3.7 mmol/L (3.5-5.1) Chloride Level 105 mmol/L (98-107) Carbon Dioxide Level 19 mmol/L (22-29) Anion Gap 15.7 mmol/L (8-16) Blood Urea Nitrogen 12 mg/dL (7-26) Creatinine 1.27 mg/dL (0.57-1.11) Estimat Glomerular Filtration Rate 43 ML/MIN (60-) BUN/Creatinine Ratio 9 (6-25) Glucose Level 138 mg/dL (74-118) Calcium Level 8.9 mg/dL (8.4-10.2) Total Bilirubin 0.4 mg/dL (0.2-1.2) Aspartate Amino Transf (AST/SGOT) 12 IU/L (5-34) Alanine Aminotransferase (ALT/SGPT) 7 IU/L (0-55) Alkaline Phosphatase 86 IU/L (40-150) Creatine Kinase 26 IU/L (29-168) Creatine Kinase MB 1.00 ng/mL (0-5.0) Troponin I 0.006 ng/mL (0-0.300) Total Protein 7.0 g/dL (6.5-8.1) Albumin 2.9 g/dL (3.5-5.0) Globulin 4.1 g/dL (2.3-3.5) Albumin/Globulin Ratio 0.7 (0.8-2.0) Urine Color Yellow (YELLOW) Urine Clarity Sl cloudy (CLEAR) Urine pH 6 (5 - 7) Urine Specific [place] >=1.030 (1.010-1.025) Urine Protein Trace (NEGATIVE) Urine Glucose (UA) Negative (NEGATIVE) Urine Ketones Negative (NEGATIVE) Urine Blood Negative (NEGATIVE) Urine Nitrite Negative (NEGATIVE) Urine Bilirubin Small (NEGATIVE) Urine Urobilinogen 1 mg/dL (0.2 - 1) Urine Leukocyte Esterase Small (NEGATIVE) Urine RBC 6-10 /HPF (0-5) Urine WBC >50 /HPF (0-5) Urine Epithelial Cells Many /LPF (NONE) Urine Bacteria Many /HPF (NONE) Laboratory Tests Test 01/07/20 16:00 01/07/20 15:29 White Blood Count 8.90 x10e3/uL (4.8-10.8) Red Blood Count 4.65 x10e6/uL (3.6-5.1) Hemoglobin 12.2 g/dL (12.0-16.0) Hematocrit 38.0 % (34.2-44.1) Mean Corpuscular Volume 81.7 fL (81-99) Mean Corpuscular Hemoglobin 26.2 pg (28-32) Mean Corpuscular Hemoglobin Concent 32.1 g/dL (31-35) Red Cell Distribution Width 14.3 % (11.7-14.4) Platelet Count 269 x10e3/uL (140-360) Neutrophils (%) (Auto) 72.9 % (38.7-80.0) Lymphocytes (%) (Auto) 14.5 % (18.0-39.1) Monocytes (%) (Auto) 9.7 % (4.4-11.3) Eosinophils (%) (Auto) 1.6 % (0.0-6.0) Basophils (%) (Auto) 0.7 % (0.0-1.0) Neutrophils # (Auto) 6.5 (2.1-6.9) Lymphocytes # (Auto) 1.3 (1.0-3.2) Monocytes # (Auto) 0.9 (0.2-0.8) Eosinophils # (Auto) 0.1 (0.0-0.4) Basophils # (Auto) 0.1 (0.0-0.1) Absolute Immature Granulocyte (auto 0.05 x10e3/uL (0-0.1) Prothrombin Time 13.8 seconds (11.9-14.5) Prothromb Time International Ratio 1.00 Activated Partial Thromboplast Time 29.6 seconds (23.8-35.5) Sodium Level 136 mmol/L (136-145) Potassium Level 3.7 mmol/L (3.5-5.1) Chloride Level 105 mmol/L (98-107) Carbon Dioxide Level 19 mmol/L (22-29) Anion Gap 15.7 mmol/L (8-16) Blood Urea Nitrogen 12 mg/dL (7-26) Creatinine 1.27 mg/dL (0.57-1.11) Estimat Glomerular Filtration Rate 43 ML/MIN (60-) BUN/Creatinine Ratio 9 (6-25) Glucose Level 138 mg/dL (74-118) Calcium Level 8.9 mg/dL (8.4-10.2) Total Bilirubin 0.4 mg/dL (0.2-1.2) Aspartate Amino Transf (AST/SGOT) 12 IU/L (5-34) Alanine Aminotransferase (ALT/SGPT) 7 IU/L (0-55) Alkaline Phosphatase 86 IU/L (40-150) Creatine Kinase 26 IU/L (29-168) Creatine Kinase MB 1.00 ng/mL (0-5.0) Troponin I 0.006 ng/mL (0-0.300) Total Protein 7.0 g/dL (6.5-8.1) Albumin 2.9 g/dL (3.5-5.0) Globulin 4.1 g/dL (2.3-3.5) Albumin/Globulin Ratio 0.7 (0.8-2.0) Urine Color Yellow (YELLOW) Urine Clarity Sl cloudy (CLEAR) Urine pH 6 (5 - 7) Urine Specific [place] >=1.030 (1.010-1.025) Urine Protein Trace (NEGATIVE) Urine Glucose (UA) Negative (NEGATIVE) Urine Ketones Negative (NEGATIVE) Urine Blood Negative (NEGATIVE) Urine Nitrite Negative (NEGATIVE) Urine Bilirubin Small (NEGATIVE) Urine Urobilinogen 1 mg/dL (0.2 - 1) Urine Leukocyte Esterase Small (NEGATIVE) Urine RBC 6-10 /HPF (0-5) Urine WBC >50 /HPF (0-5) Urine Epithelial Cells Many /LPF (NONE) Urine Bacteria Many /HPF (NONE) Lab results reviewed: Yes Imaging Imaging results reviewed: Yes Impressions CXR IMPRESSION: No focal pneumonia or pulmonary edema. Signed by: Liam Medina MD on 01/07/2020 4:20 PM Procedure: [id number] DX/FOREARM RIGHT 2 VIEW Exam Date: 01/07/20 Exam Time: 1600 REPORT STATUS: Signed EXAMINATION: FOREARM RIGHT 2 VIEW INDICATION: Cellulitis COMPARISON: None FINDINGS: No acute fracture or dislocation. Alignment is anatomic. 1 cm linear metallic opacity in the soft tissues of the lateral hand projecting between the first and second metacarpals. IMPRESSION: 1 cm linear metallic opacity in the soft tissues of the lateral hand consistent with a retained needle fragment. No acute osseous injury Signed by: Liam Medina MD on 01/07/2020 4:23 PM Assessment & Plan Medical Decision Making MDM CELLULITIS FROM IVDA - CHECK CBC, CHEM, BLOOD CX'S, CK, UA/CX, CXR, LACTIC ACID, XRAY RIGHT FOREARM - R/O CELLULITIS, RETAINED FOREIGN BODY (BROKEN NEEDLE?), SEPSIS, RHABDOMYOLYSIS, RENAL INSUFF, ELECTROLYTE ABNL Reassessment Reassessment SPOKE WITH DR HARRIS FOR ADMISSION, DR CALZADA FOR CONSULT Assessment & Plan Final Impression: (1) Cellulitis of right arm (2) Foreign body of right hand (3) Heroin abuse (4) UTI (urinary tract infection) Depart Disposition: ADMITTED Last Vital Signs Date Time Temp Pulse Resp B/P (MAP) Pulse Ox O2 Delivery O2 Flow Rate FiO2 01/07/20 16:49 84 16 111/63 97 01/07/20 14:51 98.4 Home Meds Reported Medications Omeprazole (OMEPRAZOLE) 40 Mg Capsule.dr, 40 MG PO BID 09/26/19 Budesonide/Formoterol Fumarate (SYMBICORT 80-4.5 MCG INHALER) 10.2 Gm Hfa.aer.ad, 1 EACH INH PRN, EACH 01/10/19 Methadone Hcl (METHADONE HCL) 10 Mg Tablet, 70 MG PO DAILY 01/10/19 Quetiapine Fumarate (QUETIAPINE FUMARATE) 100 Mg Tablet, 200 MG PO HS, #30 TAB 01/10/19 Levothyroxine Sodium (LEVOTHYROXINE SODIUM) 50 Mcg Tablet, 50 MCG PO HS, #30 TAB 01/10/19 Medications in the ED Sodium Chloride 1,000 ml @ 0 mls/hr Q0M STAT IV ; Start 01/07/20 at 15:13; Stop 01/07/20 at 15:19; Status DC Piperacillin Sod/ Tazobactam Sod 50 ml @ 50 mls/hr 0300,0900,1500,2100 IV ; Start 01/07/20 at 15:30; Stop 01/14/20 at 15:29 Vancomycin HCl 250 ml @ 167 mls/hr Q12HR@0500,1700 IV ; Start 01/07/20 at 17:00; Stop 01/14/20 at 16:59 CARLIN SEN MD Jan 07, 2020 18:30
[2020-01-07] MEDS ORDERED: MORPHINE SULFATE INJ 4 MG/ML INJ 1ML IV PRN (18:45)
--- NOTE | 2020-01-07 19:56 | NUR ---
REPORT TO MIGUE KIMBROUGH RN HERE.
--- NOTE | 2020-01-07 20:53 | Diagnostic Imaging Report ---
EXAMINATION: CHEST XRAY LINE PLACEMENT INDICATION: ^LINE PLACEMENT ^[id number] ^2034 COMPARISON: Chest x-ray dated 01/07/2020. FINDINGS: AP view TUBES and LINES: There is a left-sided PICC line in place with distal tip in distal SVC. LUNGS/PLEURA: Lungs are well inflated. There is no evidence of pneumonia or pulmonary edema.. There is no pleural effusion or pneumothorax. HEART AND MEDIASTINUM: The cardiomediastinal silhouette is unremarkable. BONES AND SOFT TISSUES: No acute osseous lesion. Deformities of the ribs are again seen. Soft tissues are unremarkable. UPPER ABDOMEN: No free air under the diaphragm. IMPRESSION: No acute thoracic abnormality. Left-sided PICC line in place with distal tip in distal SVC. Signed by: William Lowery MD on 01/07/2020 8:50 PM
[2020-01-07 21:00] VITALS: BP 126/77
[2020-01-07] MEDS ORDERED: ACETAMINOPHEN 325 MG TAB PO PRN (21:15)
[2020-01-07] MEDS ORDERED: HYDRALAZINE HCL 20 MG/ML VIAL IV PRN (21:15)
[2020-01-07] MEDS ORDERED: TRAMADOL HCL 50 MG TAB PO PRN (21:15)
[2020-01-07] MEDS: FAMOTIDINE 20 MG/2 ML VIAL IV SCH (22:00)
[2020-01-07] MEDS: SODIUM CHLORIDE 0.9% 1000ML 1,000 ML IV SCH (22:00)
[2020-01-08] VITALS (10 sets, daily range): BP systolic 95–134; BP diastolic 59–95
[2020-01-08] MEDS ORDERED: QUETIAPINE FUMARATE 100 MG TAB PO ONE (01:30)
--- NOTE | 2020-01-08 02:02 | NUR ---
PT IS TRANSFERRED FROM ER .PT IS AOX3 RESPIRATIONS ARE EVEN AND UNLABORED PT RT HAND SWOLLEN AND RED .LEFT UPPER ARM PICC LINE SKIN WARM AND DRY TO TOUCH .ASSESSMENT DONE AND ORIENTED THE PT TO THE ENVIRONMENT . PT IS NPO CALL LIGHT WITH IN REACH .CONTINUE TO MONITOR
[2020-01-08] MEDS: SODIUM CHLORIDE 0.9% 1000ML 1,000 ML IV SCH ×3 (02:30→12:16)
[2020-01-08] MEDS: PIPER-TAZ 3.375 GM 50 ML IV SCH ×4 (03:00→21:45)
[2020-01-08 03:47] LABS: CREATINE KINASE MB 1.2 ng/mL (0-5.0)
[2020-01-08] MEDS: VANCOMYCIN 1GM/NS 250 ML 250 ML IV SCH ×2 (05:00→17:33)
[2020-01-08 06:01] LABS: BASOPHILS % 0.6 % (0.0-1.0); EOSINOPHILS # (AUTO) 0.3 (0.0-0.4); EOSINOPHILS % 4.5 % (0.0-6.0); HEMATOCRIT 33.7 % (34.2-44.1); HEMOGLOBIN 10.7 g/dL (12.0-16.0); LYMPHOCYTES # (AUTO) 1.7 (1.0-3.2); LYMPHOCYTES % 26.7 % (18.0-39.1); MEAN CORPUSCULAR HEMOGLOBIN 26.4 pg (28-32); MEAN CORPUSCULAR HGB CONC 31.8 g/dL (31-35); MONOCYTES # (AUTO) 0.8 (0.2-0.8); MONOCYTES % 12.2 % (4.4-11.3); NEUTROPHILS # (AUTO) 3.5 (2.1-6.9); NEUTROPHILS % 55.7 % (38.7-80.0); PLATELET COUNT 229 x10e3/uL (140-360); RED BLOOD COUNT 4.06 x10e6/uL (3.6-5.1); RED CELL DISTRIBUTION WIDTH 14.3 % (11.7-14.4)
--- NOTE | 2020-01-08 06:20 | NUR ---
PT RESTING DENIES PAIN .PT IS NPO NO ORDER FOR SURGERY .CALL LIGHT WITH IN REACH .CONTINUE TO MONITOR
[2020-01-08 06:30] LABS: ALBUMIN 2.4 g/dL (3.5-5.0); ALBUMIN/GLOBULIN RATIO 0.7 (0.8-2.0); ALKALINE PHOSPHATASE 72 IU/L (40-150); ANION GAP 9.7 mmol/L (8-16); BLOOD UREA NITROGEN 11 mg/dL (7-26); BUN/CREATININE RATIO 11 (6-25); CARBON DIOXIDE 24 mmol/L (22-29); CHLORIDE 108 mmol/L (98-107); CREATININE, SERUM 1.04 mg/dL (0.57-1.11); EST GLOMERULAR FILTRATION RATE 54 ML/MIN (60-); GLUCOSE 98 mg/dL (74-118); POTASSIUM 3.7 mmol/L (3.5-5.1); SODIUM 138 mmol/L (136-145)
[2020-01-08 06:34] LABS: ALANINE AMINOTRANSFERASE < 6 IU/L (0-55)
--- NOTE | 2020-01-08 07:00 | NUR ---
received bedside report. pt is sleeping in bed, no s/s of distress. call light within reach
--- NOTE | 2020-01-08 07:04 | NUR ---
BEDSIDE REPORT GIVEN TO THE ONCOMING NURSE.
[2020-01-08] MEDS: FAMOTIDINE 20 MG/2 ML VIAL IV SCH ×2 (08:18→21:02)
--- NOTE | 2020-01-08 10:10 | NUR ---
Pt. expressed no spiritual or emotional concerns at this time. Pt's at bedside. Lumber Tailer provided information on how to reach lens gauger, if needed. No need to follow at this time. JUANCHO HARRISON Lumber Tailer Spiritual Care Department O: [phone]
[2020-01-08 11:49] LABS: CREATINE KINASE MB 1.1 ng/mL (0-5.0)
[2020-01-08] MEDS: METHADONE HCL 10 MG TAB PO SCH (15:30)
--- NOTE | 2020-01-08 17:30 | NUR ---
CONSENT SIGNED FOR I&D AND REMOVAL OF FOREIGN OBJECT, QUESTIONS/CONCERNS ADDRESSED.
--- NOTE | 2020-01-08 19:10 | NUR ---
COMPLETED BEDSIDE SHIFT REPORT WITH MORNING NURSE. PT ALERT AND ORIENTED TO NAME, SITTING IN CHAIR AT BEDSIDE, ANXIOUS ASKING FOR NICOTINE PATCH. MORNING NURSE WILL CALL TO GET AN ORDER. CALL LIGHT WITHIN REACH.
[2020-01-08] MEDS: NICOTINE 7 MG PATCH TOP PRN (21:00)
[2020-01-08] MEDS ORDERED: LEVOTHYROXINE SODIUM 50 MCG TAB PO SCH (21:00)
[2020-01-08] MEDS: LEVOTHYROXINE SODIUM 50 MCG TAB PO SCH (21:02)
[2020-01-08] MEDS: QUETIAPINE FUMARATE 100 MG TAB PO SCH (23:55)
[2020-01-09] VITALS (8 sets, daily range): BP systolic 88–132; BP diastolic 50–94
[2020-01-09] MEDS: SODIUM CHLORIDE 0.9% 1000ML 1,000 ML IV SCH ×3 (02:32→18:38)
[2020-01-09] MEDS: PIPER-TAZ 3.375 GM 50 ML IV SCH ×4 (03:00→21:23)
[2020-01-09] MEDS: VANCOMYCIN 1GM/NS 250 ML 250 ML IV SCH ×2 (05:00→17:58)
[2020-01-09] MEDS: LEVOTHYROXINE SODIUM 50 MCG TAB PO SCH (06:00)
[2020-01-09 06:19] LABS: BASOPHILS % 0.7 % (0.0-1.0); EOSINOPHILS # (AUTO) 0.2 (0.0-0.4); EOSINOPHILS % 3.6 % (0.0-6.0); HEMATOCRIT 25.9 % (34.2-44.1); HEMOGLOBIN 8.4 g/dL (12.0-16.0); LYMPHOCYTES # (AUTO) 1.2 (1.0-3.2); LYMPHOCYTES % 28.7 % (18.0-39.1); MEAN CORPUSCULAR HEMOGLOBIN 26.8 pg (28-32); MEAN CORPUSCULAR HGB CONC 32.4 g/dL (31-35); MEAN CORPUSCULAR VOLUME 82.7 fL (81-99); MONOCYTES # (AUTO) 0.5 (0.2-0.8); NEUTROPHILS # (AUTO) 2.3 (2.1-6.9); NEUTROPHILS % 54.8 % (38.7-80.0); PLATELET COUNT 177 x10e3/uL (140-360); RED BLOOD COUNT 3.13 x10e6/uL (3.6-5.1); RED CELL DISTRIBUTION WIDTH 14.5 % (11.7-14.4)
[2020-01-09 06:58] LABS: ALBUMIN 2.2 g/dL (3.5-5.0); ALBUMIN/GLOBULIN RATIO 0.7 (0.8-2.0); ALKALINE PHOSPHATASE 59 IU/L (40-150); ANION GAP 9.4 mmol/L (8-16); BLOOD UREA NITROGEN 10 mg/dL (7-26); BUN/CREATININE RATIO 11 (6-25); CALCIUM 7.7 mg/dL (8.4-10.2); CARBON DIOXIDE 23 mmol/L (22-29); CHLORIDE 110 mmol/L (98-107); CREATININE, SERUM 0.94 mg/dL (0.57-1.11); EST GLOMERULAR FILTRATION RATE > 60 ML/MIN (60-); GLUCOSE 85 mg/dL (74-118); POTASSIUM 3.4 mmol/L (3.5-5.1); SODIUM 139 mmol/L (136-145)
--- NOTE | 2020-01-09 07:00 | NUR ---
received bedside report. pt is sleeping, no s/s of distress. call light within reach
[2020-01-09 07:14] LABS: ALANINE AMINOTRANSFERASE < 6 IU/L (0-55)
[2020-01-09] MEDS ORDERED: LIDOCAINE 1% W/EPINEPHRINE 20 ML VIAL ONE (08:44)
[2020-01-09] MEDS ORDERED: BUPIVACAINE HCL 0.5% INJ 30 ML VIAL INJ ONE (08:49)
[2020-01-09] MEDS ORDERED: MUPIROCIN 2% OINT 22 GM TUBE ONE (08:49)
[2020-01-09] MEDS: FAMOTIDINE 20 MG/2 ML VIAL IV SCH ×2 (09:00→21:23)
[2020-01-09] MEDS ORDERED: METHADONE HCL 10 MG TAB PO SCH (09:00)
[2020-01-09] MEDS ORDERED: BACITRACIN 50,000 UNIT VIAL ONE (09:11)
[2020-01-09] MEDS ORDERED: POTASSIUM CHLORIDE 20 MEQ TAB CR PO SCH (11:15)
--- NOTE | 2020-01-09 11:26 | Operative Report ---
DATE OF PROCEDURE: 01/09/2020 SURGEON: Shashi Luther MD PREOPERATIVE DIAGNOSES: 1. Retained foreign body deep 1st web space, right hand. 2. Abscess 1st web space, right hand. POSTOPERATIVE DIAGNOSES: 1. Retained foreign body deep 1st web space, right hand. 2. Abscess 1st web space, right hand. PROCEDURES: 1. Exploration and removal of retained foreign body deep. 2. Incision and drainage of deep abscess, right hand. ANESTHESIA: General. HISTORY: The patient is a 59-year-old [id number] female, who was using intravenous drugs and was attempting to inject the right hand and wrist. The needle apparently broke off, the hand became infected and the patient was then seen in the emergency room several days ago. She was admitted and started on intravenous antibiotics. Radiographs confirmed the presence of metallic foreign body at the base of the interval between the 1st and 2nd metacarpals at the wrist. The risks, benefits, and alternatives of treatment were discussed with the patient, and she is prepared to undergo the procedure as outlined. PROCEDURE IN DETAIL: The patient was marked preoperatively in the holding area. She was brought to the operating theater and after the induction of adequate general anesthesia, she was prepped and draped in a supine position and a time-out was performed. The right upper extremity was elevated for 4 to 5 minutes and then a tourniquet was inflated to a pressure of 250 mmHg. The fluoroscope was brought in. The metallic foreign body was localized and then this area was infiltrated with 1% Xylocaine with epinephrine with total of 5 to 6 mL was used. After waiting appropriate amount of time for maximum vasoconstrictive effect, the incision was then made through the skin and subcutaneous tissues. All venous tributaries were controlled with the bipolar cautery. With the fluoroscope as a guide, the dissection continued through the fascia until the adductor muscle with its attachment to the base of the 2nd metacarpal was opened. There was abscess within this space. This was cultured both aerobically and anaerobically. At this point, copious irrigation ensues until all the purulent material was removed. Several 100 mL of antibiotic-containing solution was used. At this point, with the aid of the fluoroscope, the metallic foreign body was identified and it was then removed and sent for identification. The wound was irrigated once again and was then packed with quarter-inch packing, and then left open. The tourniquet was deflated, the fingers pinked up nicely and a sterile bulky conforming bandage was applied. The patient returned to recovery room in satisfactory condition and then returned to her hospital bed for further care and treatment. MD DAVID Harding/MAURICIO /[id number]
[2020-01-09] MEDS: METHADONE HCL 10 MG TAB PO SCH (15:16)
--- NOTE | 2020-01-09 15:51 | NUR ---
Nutrition Screen Note RD Recommendation for Physician: - ADAT to Regular or diet per MD Plan of Care: RD following, monitoring for tolerance and adequacy Nutrition reason for involvement: Nutrition Risk Trigger Primary Diagnose(s): cellulitis R arm, foreign body of R arm PMH: no H&P Ht: 64 in Wt: 130 lb BMI: 22.3 kg/m2 IBW: [address] Assessment: (01/08) 59 YOF admitted for a foreign body in her R hand. Pt out of room- in OR for foreign body removal. Noted pt eating 75% of meals per chart. Noted mild wt loss x1 yr per chart. No GI distress documented. Chart reviewed. Labs and meds reviewed. Will continue to monitor. Current Diet: NPO- for procedure Malnutrition Evaluation (01/09/20) The patient does not meet criteria for a specified degree of malnutrition at this time. Will re-evaluate at follow-up as appropriate. Diet Education Needs Assessment: Diet education not indicated. Diet tolerance: tolerating po Nutrition Care Level: low Signed: Kimberley Montes RD, LD, CNSC
[2020-01-09] MEDS ORDERED: FENTANYL CITRATE/PF 100MCG/2 ML INJ ONE (19:22)
[2020-01-09] MEDS ORDERED: MIDAZOLAM HCL 2 MG/2 ML VIAL ONE (19:22)
[2020-01-09] MEDS ORDERED: PROPOFOL IV EMULSION 10 MG/ML 20 ML VIAL ONE (19:30)
[2020-01-09] MEDS ORDERED: LIDOCAINE HCL 2% LOCAL INJ 5 ML SDV VIAL INJ ONE (19:30)
[2020-01-09] MEDS ORDERED: SEVOFLURANE INHAL SOLN 250 ML PEN BTL ONE (19:30)
[2020-01-09] MEDS ORDERED: ETOMIDATE 2 MG/ML 10 ML INJ IV ONE (19:30)
[2020-01-09] MEDS ORDERED: ONDANSETRON HCL INJ 2MG/ML 2ML 2 MG/ML VIAL ONE (19:30)
[2020-01-09] MEDS: NICOTINE 7 MG PATCH TOP PRN (21:44)
[2020-01-09] MEDS: QUETIAPINE FUMARATE 100 MG TAB PO SCH (23:33)
[2020-01-10] VITALS (7 sets, daily range): BP systolic 114–141; BP diastolic 56–72
[2020-01-10] MEDS: PIPER-TAZ 3.375 GM 50 ML IV SCH ×4 (03:00→20:48)
[2020-01-10] MEDS: SODIUM CHLORIDE 0.9% 1000ML 1,000 ML IV SCH ×2 (03:00→07:55)
[2020-01-10 04:37] LABS: BASOPHILS % 0.9 % (0.0-1.0); EOSINOPHILS # (AUTO) 0.2 (0.0-0.4); EOSINOPHILS % 4.6 % (0.0-6.0); HEMATOCRIT 25.1 % (34.2-44.1); HEMOGLOBIN 7.8 g/dL (12.0-16.0); LYMPHOCYTES # (AUTO) 1.2 (1.0-3.2); LYMPHOCYTES % 28.3 % (18.0-39.1); MEAN CORPUSCULAR HEMOGLOBIN 26.3 pg (28-32); MEAN CORPUSCULAR HGB CONC 31.1 g/dL (31-35); MEAN CORPUSCULAR VOLUME 84.5 fL (81-99); MONOCYTES # (AUTO) 0.5 (0.2-0.8); MONOCYTES % 11.3 % (4.4-11.3); NEUTROPHILS # (AUTO) 2.4 (2.1-6.9); NEUTROPHILS % 54.7 % (38.7-80.0); PLATELET COUNT 164 x10e3/uL (140-360); RED BLOOD COUNT 2.97 x10e6/uL (3.6-5.1); RED CELL DISTRIBUTION WIDTH 14.7 % (11.7-14.4)
[2020-01-10] MEDS: VANCOMYCIN 1GM/NS 250 ML 250 ML IV SCH (05:00)
[2020-01-10 05:04] LABS: ALANINE AMINOTRANSFERASE 6 IU/L (0-55); ALBUMIN 2.1 g/dL (3.5-5.0); ALBUMIN/GLOBULIN RATIO 0.8 (0.8-2.0); ALKALINE PHOSPHATASE 55 IU/L (40-150); ANION GAP 6.8 mmol/L (8-16); BLOOD UREA NITROGEN 7 mg/dL (7-26); BUN/CREATININE RATIO 8 (6-25); CALCIUM 7.5 mg/dL (8.4-10.2); CARBON DIOXIDE 23 mmol/L (22-29); CHLORIDE 113 mmol/L (98-107); CREATININE, SERUM 0.92 mg/dL (0.57-1.11); EST GLOMERULAR FILTRATION RATE > 60 ML/MIN (60-); GLUCOSE 76 mg/dL (74-118); POTASSIUM 3.8 mmol/L (3.5-5.1); SODIUM 139 mmol/L (136-145)
--- NOTE | 2020-01-10 05:14 | NUR ---
VANCOMYCIN TROUGH 26.2, ORDER TO HOLD AGUS, LIVESTOCK NUTRITION TERRITORY MANAGER.
[2020-01-10] MEDS: LEVOTHYROXINE SODIUM 50 MCG TAB PO SCH (06:00)
--- NOTE | 2020-01-10 07:00 | NUR ---
Received bedside report. pt is sleeping, no s/s of distress noted. call light within reach
--- NOTE | 2020-01-10 07:09 | NUR ---
Pt lying in bed, no acute distress noted. Report given to morning nurse.
[2020-01-10] MEDS: FAMOTIDINE 20 MG/2 ML VIAL IV SCH ×2 (07:55→20:48)
[2020-01-10] MEDS ORDERED: SODIUM CHLORIDE 0.9% 1000ML 1,000 ML IV SCH (10:00)
[2020-01-10] MEDS ORDERED: FUROSEMIDE INJ 10 MG/ML 4 ML VIAL IV SCH (11:00)
[2020-01-10] MEDS ORDERED: POTASSIUM CHLORIDE 20 MEQ TAB CR PO SCH (11:00)
[2020-01-10] MEDS ORDERED: TETANUS/DIPHTHERIA TOX ADULT 0.5 ML SYR IM ONE (11:00)
--- NOTE | 2020-01-10 13:11 | NUR ---
WOUND CARE CONSULT FOR 59 YO FEMALE HX OF CELLULITIS ,FORGINE BODY IN RIGHT HAND SERGIO 21 ON CONSERVATIVE PUP STATUS AND INTERVENTIONS AND VISCO MATTRESS LABS: WBC-4.35 HGB_7.8 GLUCOSE-76 SKIN ASSESSMENT COMPLETE PATIENT PRESENTS WITH RIGHT HAND FULLTHICKNESS POST SURGICAL I&D WOUND RECOMMENDATIONS: NURSING TO CONTINUE TO MAINTAIN CONSERVATIVE PUP STATUS AND INTERVENTIONS AND VISCO_ MATTRESS NURSING TO CONTINUE TO ASSIST PATIENT OUT OF BED FOR MEALS AND MUCH TOLERATED NURSING TO CONTINUE TO ASSIST PATIENT NEEDED WITH MEALS AND NUTRITIONAL SUPPLEMENTS TO ENSURE PROPER REQUIREMENTS FOR HEALING NURSING TO CONTINUE TO OFFLOAD FEET AND HEELS NEEDED WITH PILLOW SUSPENSION WHEN IN BED NURSING TO CLEAN RIGHT HAND FULL THICKNESS WOUND WITH NORMAL SALINE DAILY AND PACK WITH IODOFORM PACKING AND COVER WITH SILVER ALGINATE AND 4X4S WRAP WITH CAST PADDING SECURE WITH LOOSE DARRYL WRAP Addendum: 01/10/20 at 1317 by Ollie Gomez RN Amended: Links added.
--- NOTE | 2020-01-10 14:50 | Consultation ---
DATE OF CONSULTATION: 01/10/2020 ID Consult REASON FOR CONSULTATION: Right arm cellulitis. Thank you, Dr. Pittman, for asking me to see this patient. HISTORY OF PRESENT ILLNESS: The patient is a 59-year-old woman referred for right arm cellulitis. She presented to the Emergency Department with pain, swelling and redness of the right hand and forearm. The patient uses IV heroin and skin pops due to difficulty finding veins. She was fishing for a vein in the dorsum of the right hand recently. In the emergency room, x-ray of the right hand showed 1 cm linear metallic opacity in the soft tissue of the lateral hand. The patient was evaluated by the Hand Surgery Service and successfully underwent exploration and removal of the retained foreign body, as well as incision and drainage of right hand deep abscess. PAST MEDICAL HISTORY: Hypothyroidism, asthma, fibromyalgia, degenerative joint disease, heroin addiction, and schizoaffective disorder. PAST SURGICAL HISTORY: Hip arthroplasty and tonsillectomy. MEDICATIONS: The current antibiotic is Zosyn 3.375 g IV piggyback q.6 hours. Vancomycin is on hold due to high trough. FAMILY HISTORY: Throat cancer: Mother and father. SOCIAL HISTORY: Tobacco use: The patient is a heavy smoker. Alcohol use: Patient drinks rarely. Recreational drug use: The patient uses heroin. REVIEW OF SYSTEMS: The patient denies fever, chills, cough, shortness of breath, nausea, vomiting, diarrhea or abdominal pain. She reports good pain control of the right hand. PHYSICAL EXAMINATION: GENERAL: No acute distress and does not appear toxic. VITAL SIGNS: T-max 98.5, pulse rate 65, respiratory rate 20, blood pressure 131/72, weight 130 pounds. HEENT: Normocephalic, atraumatic. There is no icterus or injection of conjunctiva. There is no ear or nasal discharge. There is moist oral mucosa. No pharyngeal erythema or exudate. NECK: Supple. No distention or external jugular veins. LUNGS: Clear to auscultation bilaterally. HEART: Normal S1 and S2. Regular. ABDOMEN: Soft and nontender. EXTREMITIES: The right hand wrist dressing in place. There is trace edema of the right forearm. There is no edema, clubbing, or cyanosis of the rest of the extremities. SKIN: No rash. CIVIL CLERK: Awake, alert, oriented to person, place, and time. Nonfocal. LABORATORY AND DIAGNOSTICS: WBC 4250, hemoglobin 7.8, platelets 164,000, neutrophils 54.7, lymphocytes 28.3, monocytes 11.3, eosinophils 4.6, and basophils 0.9. BUN 7, creatinine 0.96. Coronavirus PCR negative. Blood culture showed no growth. Wound culture is pending. IMPRESSION: 1. Cellulitis and abscess of the right upper extremity, status post incision and drainage. 2. Retained metallic foreign body of the right hand, status post removal. 3. Heroin addiction. PLAN: 1. Await the wound culture results. 2. Administer tetanus- diphtheria vaccine if not yet given. 3. I discussed discharge planning with the Internal Medicine team. The patient will be switched to oral equivalent antibiotic when ready for discharge. Minocycline 100 mg p.o. b.i.d. for 7 days with if final wound culture result shows no growth. MD JAIME Andre/MAURICIO /[id number]
[2020-01-10] MEDS: METHADONE HCL 10 MG TAB PO SCH (15:39)
[2020-01-10] MEDS: NICOTINE 7 MG PATCH TOP PRN (20:48)
[2020-01-10] MEDS: QUETIAPINE FUMARATE 100 MG TAB PO SCH (20:48)
[2020-01-11] VITALS (8 sets, daily range): BP systolic 102–144; BP diastolic 55–112
[2020-01-11] MEDS: PIPER-TAZ 3.375 GM 50 ML IV SCH ×4 (02:55→21:29)
[2020-01-11] MEDS: LEVOTHYROXINE SODIUM 50 MCG TAB PO SCH (06:23)
--- NOTE | 2020-01-11 06:23 | NUR ---
CENTRAL LINE CARE PROVIDED. DAILY CHG BATH GIVEN.
--- NOTE | 2020-01-11 06:40 | NUR ---
RECEIVED BEDSIDE SHIFT REPORT FROM OFF GOING NURSE. PATIENT IS RESTING IN BED. NO ACUTE DISTRESS NOTED. CALL LIGHT WITHIN REACH. BED IN THE LOWEST POSITION.
[2020-01-11 06:46] LABS: BASOPHILS % 0.8 % (0.0-1.0); EOSINOPHILS # (AUTO) 0.1 (0.0-0.4); EOSINOPHILS % 2.8 % (0.0-6.0); HEMATOCRIT 25.9 % (34.2-44.1); HEMOGLOBIN 8.1 g/dL (12.0-16.0); LYMPHOCYTES # (AUTO) 1.4 (1.0-3.2); LYMPHOCYTES % 27.1 % (18.0-39.1); MEAN CORPUSCULAR HGB CONC 31.3 g/dL (31-35); MONOCYTES # (AUTO) 0.7 (0.2-0.8); MONOCYTES % 13.4 % (4.4-11.3); NEUTROPHILS # (AUTO) 2.8 (2.1-6.9); NEUTROPHILS % 55.7 % (38.7-80.0); PLATELET COUNT 176 x10e3/uL (140-360); RED BLOOD COUNT 3.12 x10e6/uL (3.6-5.1); RED CELL DISTRIBUTION WIDTH 14.8 % (11.7-14.4)
[2020-01-11 07:15] LABS: ALBUMIN 2.4 g/dL (3.5-5.0); ALBUMIN/GLOBULIN RATIO 0.8 (0.8-2.0); ANION GAP 8.8 mmol/L (8-16); CREATININE, SERUM 1.13 mg/dL (0.57-1.11); MAGNESIUM 1.4 MG/DL (1.3-2.1); POTASSIUM 3.8 mmol/L (3.5-5.1)
--- NOTE | 2020-01-11 07:15 | NUR ---
REPORT GIVEN TO DAYSHIFT NURSE. PATIENT IN STABLE CONDITION. NO SIGNS OF IV INFILTRATION. BED LOCKED AND IN LOW POSITION. CALL LIGHT WITHIN REACH.
[2020-01-11] MEDS: FAMOTIDINE 20 MG/2 ML VIAL IV SCH ×2 (08:52→21:29)
--- NOTE | 2020-01-11 11:28 | NUR ---
SPOKE TO BEVERLY WILLIAMSON NP AND HE STATES THEY ARE STILL AWAITING FOR FINAL WOUND CULTURE REPORT
--- NOTE | 2020-01-11 11:51 | NUR ---
REFERRED TO [facility] [employer] TO REQUEST PROVIDER SERVICES TO ASSIST WITH ADLS/IADLS
[2020-01-11] MEDS: METHADONE HCL 10 MG TAB PO SCH (14:59)
--- NOTE | 2020-01-11 19:21 | NUR ---
BEDSIDE SHIFT REPORT GIVEN TO ONCOMING NURSE. PATIENT IS RESTING IN BED. NO ACUTE DISTRESS NOTED. CALL LIGHT WITHIN REACH. BED IN THE LOWEST POSITION.
[2020-01-11] MEDS: QUETIAPINE FUMARATE 100 MG TAB PO SCH (21:29)
[2020-01-12] VITALS (7 sets, daily range): BP systolic 105–124; BP diastolic 44–71
[2020-01-12] MEDS: PIPER-TAZ 3.375 GM 50 ML IV SCH ×3 (03:00→14:52)
--- NOTE | 2020-01-12 06:52 | NUR ---
RECEIVED BEDSIDE SHIFT REPORT FROM OFF GOING NURSE. PATIENT IS RESTING IN BED. NO ACUTE DISTRESS NOTED. DENIES PAIN OR DISCOMFORT. CALL LIGHT WITHIN REACH. BED IN THE LOWEST POSITION.
[2020-01-12] MEDS: LEVOTHYROXINE SODIUM 50 MCG TAB PO SCH (07:19)
[2020-01-12 07:31] LABS: BASOPHILS % 0.7 % (0.0-1.0); EOSINOPHILS # (AUTO) 0.2 (0.0-0.4); EOSINOPHILS % 4.3 % (0.0-6.0); HEMOGLOBIN 7.9 g/dL (12.0-16.0); LYMPHOCYTES # (AUTO) 1.3 (1.0-3.2); LYMPHOCYTES % 30.1 % (18.0-39.1); MEAN CORPUSCULAR HEMOGLOBIN 26.5 pg (28-32); MEAN CORPUSCULAR HGB CONC 31.6 g/dL (31-35); MEAN CORPUSCULAR VOLUME 83.9 fL (81-99); MONOCYTES # (AUTO) 0.6 (0.2-0.8); MONOCYTES % 14.2 % (4.4-11.3); NEUTROPHILS # (AUTO) 2.1 (2.1-6.9); NEUTROPHILS % 50.5 % (38.7-80.0); PLATELET COUNT 174 x10e3/uL (140-360); RED BLOOD COUNT 2.98 x10e6/uL (3.6-5.1); RED CELL DISTRIBUTION WIDTH 14.8 % (11.7-14.4)
[2020-01-12 07:50] LABS: ANION GAP 9.8 mmol/L (8-16); CALCIUM 8.2 mg/dL (8.4-10.2); CREATININE, SERUM 1.03 mg/dL (0.57-1.11); POTASSIUM 3.8 mmol/L (3.5-5.1)
--- NOTE | 2020-01-12 08:06 | NUR ---
LAB CALLED TO NOTIFY PATIENT'S BG OF 56. BG CHECKED AND IT WAS 80.
[2020-01-12] MEDS: FAMOTIDINE 20 MG/2 ML VIAL IV SCH (08:24)
--- NOTE | 2020-01-12 09:10 | NUR ---
Met with Elvin Cullen TRADING ANALYST. Discussed pt status. Final wound cx report pending. Prelim report no growth after 2 days. Expecting final today, and Elvin stated he will poss call micro. Elvin stated will call Dr. Thomas and discuss poss dc home on oral antibiotics today.
[2020-01-12] MEDS: METHADONE HCL 10 MG TAB PO SCH (14:53)
[2020-01-12] MEDS ORDERED: MINOCYCLINE HCL50 MG PO ×2 (17:34→17:44)
[2020-01-12] MEDS ORDERED: ACETAMINOPHEN325 M1 PO (17:34)
[2020-01-12] MEDS ORDERED: ZINC SULFATE220 MG PO (18:08)
[2020-01-12] MEDS ORDERED: OS-CAL 500+D T1 EACH PO (18:08)
[2020-01-12] MEDS ORDERED: MULTIVITAMINS1 EAC6 PO (18:08)
[2020-01-12] MEDS ORDERED: VITAMIN C500 M2 PO (18:08)
[2020-01-12] MEDS ORDERED: MAGNESIUM OXID400 MG PO (18:08)
--- NOTE | 2020-01-12 19:12 | NUR ---
RECEIVED DISCHARGE ORDER FROM SHAUNNA PAUL. PATIENT IS IN STABLE CONDITION. PICC LINE TO LEFT UPPER ARM DISCONTINUED WITH TIP INTACT, PRESSURE DRESSING APPLIED X2. DISCHARGE TEACHING PROVIDED TO PATIENT, SHE VERBALIZED UNDERSTANDING. ALL PERSONAL ITEMS ON HAND. DISCHARGE FOLDER WITH PRESCRIPTIONS ON HAND. PATIENT ACCOMPANIED TO PRIVATE AUTO VIA WHEELCHAIR BY STAFF.
--- NOTE | 2020-01-12 19:30 | Discharge Summary ---
CONSULTING PHYSICIANS: Shashi Luther MD with Hand Surgery and Dr. Abilio Kaminski with Infectious Disease. CHIEF COMPLAINT: Right arm swelling/redness. HISTORY OF PRESENT ILLNESS: The patient is a 59-year-old female, who admitted with complaints of right arm swelling and erythema that began 4 nights prior to admission after shooting up heroin. The patient says she usually snorts it, but wanted to inject this time. She denies fever and drainage. PAST MEDICAL HISTORY: COPD, anxiety/schizophrenia, fibromyalgia, osteoarthritis. PAST SURGICAL HISTORY: None. FAMILY HISTORY: Diabetes mellitus in the father and brother and then cancer in the mother. SOCIAL HISTORY: Smokes less than half-a-pack per day. Occasional alcohol use. Uses heroin and marijuana. ALLERGIES: NO KNOWN ALLERGIES. ADMITTING DIAGNOSES: 1. Right upper extremity cellulitis with foreign body. 2. Heroin abuse. 3. Hypothyroidism. 4. Anxiety/schizophrenia. DISCHARGE DIAGNOSES: 1. Right upper extremity cellulitis with foreign body, status post I and D plus foreign body removal on 01/09/[address] Goldberg. 2. Heroin use. 3. Anxiety/schizophrenia. 4. Tobacco use. 5. Anemia. The patient has been afebrile the entire hospitalization. Today's vital signs, temperature 98.7, heart rate 68, blood pressure 116/44, respirations 18, and oxygen saturation 100% on room air. On 01/06, WBC 8.9, hemoglobin 12.2, hematocrit 38, platelets 269. Sodium 136, potassium 3.7, chloride 105, CO2 of 19, anion gap 15.7. BUN 12, creatinine 1.27, estimated GFR 43, glucose 138, calcium 8.9, total bilirubin 0.4, AST 12, ALT 7, alkaline phosphatase 86. Creatine kinase 26. CK-MB 1, troponin I 0.006. Total protein 7, albumin 2.9. Her TSH on 01/08 was 1.16. All of her cardiac biomarkers were within normal limits. She is receiving Zosyn and vancomycin during her stay. Her vancomycin trough level was 26.2 on 01/09, but vancomycin held after that. 01/06, coronavirus PCR was not detected. Blood culture x2 collected on 01/06, showed no growth after 5 days. Final urine culture was negative. On 01/08, the right hand wound culture was collected, rare WBC seen, no organisms seen. Final wound culture showed no growth after 3 days. Anaerobic culture preliminary shows no anaerobes to date. PICC line was placed on 01/06. Chest x-ray showed no focal pneumonia or pulmonary edema. Forearm x-ray on 01/06, showed 1 cm linear metallic opacity and the soft tissues of the lateral hand consistent with a retained needle fragment. No acute osseous injury. Today, WBCs 4.15, hemoglobin 7.9, hematocrit 25, platelets 174. Sodium 141, potassium 3.8, chloride 110, CO2 of 25, BUN 5, creatinine 1.03, estimated GFR 55, fingerstick blood glucose 169 today. Calcium 8.2. Yesterday, her magnesium was 1.4, total bilirubin 0.4, AST 20, ALT 8, alkaline phosphatase 59. Case was discussed with Dr. Pittman and Dr. Kaminski. Per Infectious Disease, the patient could be discharged home on minocycline 100 mg p.o. b.i.d. for 7 days. She is to continue her methadone 70 mg p.o. q.24 hours. No pain medications prescribed, except for Tylenol upon discharge, which can also be used for fever. Also, discharge her on wound healing medications. She will be on a regular diet. Activity level as tolerated. Follow up with her PCP in 1 to 2 weeks. Follow up with Dr. Goldberg and Dr. Kaminski as directed. Dictated by Elvin Cullen NP Mikey Pittman MD HWP/MODL /[id number]
--- NOTE | 2020-01-13 14:30 | NUR ---
CALL TO [facility] THIS AM TO CONFIRM REFERRAL RECEIVED. INFORMED THE FAX WAS NOT GOING THROUGH. ATTEMPTED AT 1117AM, BUT NOT SUCCESSFUL. [facility] ASKED WE FAX TO [phone] @ [phone] STILL NON WORKING # [id number] SUCCESSFUL FAX TO [phone]. CONFIRMED FAX RECEIVED. WILL AWAIT AUTH
--- NOTE | 2020-01-13 17:40 | NUR ---
[facility] DECLINED REFERRAL. OON. REFERRAL WAS FAXED TO [facility] @ OFF: [phone] / FAX: [phone]. RECEIVED CALL FROM [facility] CONFIRMING FAX RECEIVED. STATES THEY WILL UPDATE WHEN APPROVED.
== END 2020-01-12 19:12 | disposition home health service (06) | DRG 908 ==
LOC: ER 14:29 → ERHOLD 18:30 → MED/SURG3 22:28
PROVIDERS: ADMIT Internal Medicine; ATTEND Internal Medicine
PROC: 02HV33Z Insertion of Infusion Device into Superior Vena Cava, Percutaneous Approach (ICD-10-PCS; principal; 2020-01-07)
PROC: B548ZZA Ultrasonography of Superior Vena Cava, Guidance (ICD-10-PCS; principal; 2020-01-07)
PROC: 0KC90ZZ Extirpation of Matter from Right Lower Arm and Wrist Muscle, Open Approach (ICD-10-PCS; 2020-01-09)
DX: S51.841A Puncture wound with foreign body of right forearm, initial encounter (principal); J45.901 Unspecified asthma with (acute) exacerbation; L03.113 Cellulitis of right upper limb; N39.0 Urinary tract infection, site not specified; F11.20 Opioid dependence, uncomplicated; J44.9 Chronic obstructive pulmonary disease, unspecified; Z83.3 Family history of diabetes mellitus; Z80.9 Family history of malignant neoplasm, unspecified; F12.10 Cannabis abuse, uncomplicated; E03.9 Hypothyroidism, unspecified; F41.9 Anxiety disorder, unspecified; F25.9 Schizoaffective disorder, unspecified; F17.210 Nicotine dependence, cigarettes, uncomplicated; E87.6 Hypokalemia; D64.9 Anemia, unspecified; Z11.59 Encounter for screening for other viral diseases
CPT/HCPCS: 36415; 36569; 71045; 80048; 80053; 80202; 81001; 82550; 82553; 82948; 83735; 84443; 84484; 85025; 85610; 85730; 87040; 87071; 87075; 87086; 87205; 87635; 88300; 90714; 96361; 99251; 99284; J1940; J2001; J2250; J2405; J2543; J3010; J3370; J7030